=== PATIENT | female | born 1940 | race Caucasian/White ===

== ENCOUNTER → 2016-07-14 | Outpatient (CLI) | payer MEDICARE, BC ==
[~2016-07-14] MED LIST: AMITRYPTYLINE PO; ASPIRIN PO; COREG PO; LIPITOR PO; NAPROSYN500 MG PO; NAPROXEN PO; PLAVIX PO
--- NOTE | ~2016-07-14 | CT55 ---
[facility] A Service of [facility] & [facility] RADIOLOGY TEXT RESULTS PATIENT: FAMILIA OKEEFE [facility] UNIT #: [id number] AGE: [address]: Declan Joe MD SEX: F ORDER DR: [id number] [facility] [address] [place], [place] [address] [id number] O MR#: [id number] [facility] #: [id number] NAME: FAMILIA OKEEFE. : 1940 SEX: F STUDY DATE/TIME: 07/14/2016 12:37 UNIT: [facility] ROOM: STUDY DESCRIPTION: CT Chest W Con Attending Physician: Declan Joe M.D. Referring Physician: Declan Joe M.D. Ordering Physician: Declan Joe M.D. Primary Care Physician: Lonny Castanon M.D. MEDICAL IMAGING REPORT This report is preliminary unless electronic signature is present EXAM CT chest with contrast, 07/14/2016, 1237 hours. CLINICAL HISTORY 76-year-old woman with a history of renal cell carcinoma, hypertension, and coronary artery disease for evaluation of lymphadenopathy. Enlarged aorticopulmonary window lymph node initially described on CT chest 09/09/2015 for continued followup. COMPARISON CT chest 09/09/2015, 01/06/2016, and PET/CT 09/28/2015. TECHNIQUE Dynamic helical CT images were obtained from the thoracic inlet through the adrenal glands. Sagittal and coronal reconstructions were performed. Contrast was Isovue-370 70 mL IV. Total exam DLP 490 mGy-cm. This CT exam was performed with one or more of the following radiation dose reduction techniques: automatic exposure control, adjustment of mA and/or kV according to patient size, and iterative reconstruction. FINDINGS Images through the thoracic inlet demonstrate no thyroid mass or supraclavicular adenopathy. Images through the chest with contrast demonstrate normal caliber aorta, pulmonary arteries, and cardiac chambers. Coronary calcifications are present. There is a moderate-sized paraesophageal hiatal hernia without change. There are small lymph nodes in the aorticopulmonary window. Example node measures 1.6 x 1.6 cm, previously 1.9 x 1.3 cm, felt stable to decreased in size. No new lymph nodes are seen. The lungs demonstrate biapical scarring which is stable. There are no STS. [facility] A Service of [facility] & [facility] RADIOLOGY TEXT RESULTS PATIENT: FAMILIA OKEEFE LOCATION: [facility] : 38 UNIT #: [id number] AGE: [address]: Declan Joe MD SEX: F ORDER DR: pulmonary parenchymal nodules or acute infiltrates. There are no effusions. The bone window images demonstrate healed right clavicle fracture. There are old healed right rib fractures. There are no acute bone lesions. IMPRESSION 1. The previously demonstrated enlarged aorticopulmonary window lymph node is stable to slightly smaller on today's exam measuring 1.6 x 1.6 cm, previously up to 1.9 x 1.3 cm. No new nodes are seen. There are no acute pulmonary densities or pleural effusions. 2. Old healed right clavicle and right rib fractures. No acute bone lesions. 3. Moderate-sized paraesophageal hiatal hernia is unchanged. 4. Stable mild thickening of the left adrenal gland. 5. Stable lymph node to the left of the aorta at the level of the previous renal vessels on the left 2.0 x 1.4 cm. Dictated by... Shaylee Connor M.D. THIS IS AN ELECTRONICALLY VERIFIED REPORT Shaylee Connor M.D. at 07/15/2016 2:30 PM DAVID/ahsan TD: 07/15/2016 13:54 JOB #: [id number] MEDICAL IMAGING REPORT Page 1 of 1 COPY
[2016-07-14 13:56] LABS: POC - CREATININE 0.71 mg/dL (0.44-1.03); POC - GFR >60.0 mL/min (>60)
== END | disposition home or self-care (01) ==
LOC: CCAT 11:30
PROVIDERS: Internal Medicine
DX: I25.10 Atherosclerotic heart disease of native coronary artery without angina pectoris (principal); R59.0 Localized enlarged lymph nodes; K44.9 Diaphragmatic hernia without obstruction or gangrene; E27.8 Other specified disorders of adrenal gland
CPT/HCPCS: 71260; 82565; Q9967